=== PATIENT | male | born 1975 | race Caucasian/White ===

== ENCOUNTER 2016-12-15 23:41 | Emergency (ER) | payer OTHER ==
[2016-12-16 03:05] VITALS: BP 147/76
== END 2016-12-16 03:05 | disposition home or self-care (01) ==
LOC: ED 23:41
DX: M79.662 Pain in left lower leg (principal); M79.661 Pain in right lower leg; G89.29 Other chronic pain; M54.5 Low back pain; Z79.899 Other long term (current) drug therapy
CPT/HCPCS: J1170

== ENCOUNTER 2017-01-25 00:27 | Emergency (ER) | payer OTHER ==
[2017-01-25 01:24] LABS: BASOPHIL % 1.7 % (0-2); PLATELET COUNT 224 x10^3mcL (130-400); RED CELL DISTRIBUTION WIDTH 12.1 % (11.5-14.5)
[2017-01-25 01:35] LABS: CALCIUM 9.2 mg/dL (8.5-10.1); CARBON DIOXIDE 29.9 mmol/L (21-32); CHLORIDE SERUM 106 mmol/L (98-107); GFR1 > 60 mL/min; GLUCOSE SERUM 95 mg/dL (74-106); POTASSIUM SERUM 3.5 mmol/L (3.5-5.1); SODIUM SERUM 143 mmol/L (136-145)
[2017-01-25 02:38] LABS: AMPHETAMINE QUAL UR NONE DETECTED (NEG <=1000)
[2017-01-25 04:37] VITALS: BP 148/92
== END 2017-01-25 04:43 | disposition home or self-care (01) ==
LOC: ED 00:27
PROVIDERS: Emergency Medicine
DX: S01.81XA Laceration without foreign body of other part of head, initial encounter (principal); M54.5 Low back pain; X58.XXXA Exposure to other specified factors, initial encounter; Y93.89 Activity, other specified; Y99.8 Other external cause status; Y92.89 Other specified places as the place of occurrence of the external cause
CPT/HCPCS: 90715; G0480; J1885; J3010; J7030

== ENCOUNTER 2017-02-20 00:15 | Emergency (ER) | payer OTHER ==
[2017-02-20 02:39] LABS: BASOPHIL % 1.9 % (0-2); PLATELET COUNT 171 x10^3mcL (130-400); RED CELL DISTRIBUTION WIDTH 11.8 % (11.5-14.5)
[2017-02-20 02:50] LABS: CALCIUM 8.5 mg/dL (8.5-10.1); CARBON DIOXIDE 27.7 mmol/L (21-32); CHLORIDE SERUM 106 mmol/L (98-107); CREATININE SERUM 0.9 mg/dL (0.7-1.3); GFR1 > 60 mL/min; GLUCOSE SERUM 105 mg/dL (74-106); POTASSIUM SERUM 3.5 mmol/L (3.5-5.1); SODIUM SERUM 143 mmol/L (136-145)
[2017-02-20 02:55] LABS: ALBUMIN 3.8 g/dL (3.4-5.0); ALKALINE PHOSPHATASE 62 U/L (46-116); ALT/SGPT 59 U/L (16-63); AMYLASE 92 U/L (25-115); AST/SGOT 30 U/L (15-37); BILIRUBIN TOTAL 0.35 mg/dL (0.20-1.00); LIPASE 165 IU/L (73-393); TOTAL PROTEIN, SERUM 6.9 g/dL (6.4-8.2)
[2017-02-20 06:39] VITALS: BP 144/86
== END 2017-02-20 06:39 | disposition home or self-care (01) ==
LOC: ED 00:15
PROVIDERS: Specialist
DX: K59.00 Constipation, unspecified (principal); G62.9 Polyneuropathy, unspecified
CPT/HCPCS: 83880; J1885; J2270; J2405; J3010; J7030

== ENCOUNTER 2017-02-28 02:40 | Emergency (ER) | payer OTHER ==
[~2017-02-28] VITALS: Ht 172.7 cm; Wt 83.9 kg
[2017-02-28 03:00] VITALS: BP 153/94; Ht 172.7 cm; Wt 83.9 kg
== END 2017-02-28 06:50 | disposition left against medical advice (07) ==
LOC: ED 02:40
DX: Z53.21 Procedure and treatment not carried out due to patient leaving prior to being seen by health care provider (principal)